=== PATIENT | male | born 1995 | race African-American/Black ===

== ENCOUNTER 2023-01-28 21:32 | Emergency (ER) | payer OTHER, SELFPAY ==
[~2023-01-28 21:32] MED LIST: Iopamidol 370 76% 100 ML VIAL ONE
[2023-01-28] MEDS ORDERED: diphenhydrAMINE 50 MG/ML VIAL ONE (21:39)
[2023-01-28] MEDS ORDERED: methylPREDNISolone Sod Succ 40 MG VIAL ONE (21:39)
[2023-01-28 21:52] LABS: PTT 25.1 sec (22.9-36.1)
[2023-01-28 21:53] LABS: Prothrombin Time 13.2 sec (12.0-14.7)
[2023-01-28 21:55] LABS: D-Dimer Test Less than 0.27 *mcg/mL (0.27-0.43)
[2023-01-28 21:59] LABS: ALT (SGPT) 47 U/L (8-55); AST (SGOT) 31 U/L (5-34); Albumin 4.6 g/dL (3.5-5.0); Alkaline Phosphatase 90 U/L (40-110); Anion Gap 21 mmol/L (10-20); BUN (Urea Nitrogen) 13 mg/dL (8.9-20.6); Calc. Creatinine Clearance 0 mL/min (70-130); Calcium 9.5 mg/dL (7.8-10.44); Carbon Dioxide 20 mmol/L (22-29); Chloride 104 mmol/L (98-107); Estimated GFR 56; Globulin 3.6 g/dL (2.4-3.5); Glucose 118 mg/dL (70-105); Potassium 3.5 mmol/L (3.5-5.1); Protein, Total 8.2 g/dL (6.0-8.3); Sodium 141 mmol/L (136-145)
[2023-01-28 22:05] LABS: Hematocrit 50.6 % (42.0-52.0); Hemoglobin 16.1 g/dL (14.0-18.0); Mean Corpuscular HGB CONC 31.7 g/dL (32.0-36.0); Mean Corpuscular Hemoglobin 31.1 pg (27.0-31.0); Mean Corpuscular Volume 97.9 fl (78.0-98.0); Platelet Count 205 10x3/uL (130-400); Red Blood Cell (RBC) Count 5.17 mill/uL (4.70-6.10); White Blood Cell (WBC) Count 9.3 10x3/uL (4.8-10.8)
[2023-01-28 22:06] LABS: #Basophils 0.1 thou/uL (0.0-0.2); #Eosinphils 0.4 thou/uL (0.0-0.7); #Monocytes 0.7 thou/uL (0.11-0.59); #Neutrophils 5.1 thou/uL (1.40-6.50); %Eosinophils 4.2 % (0.0-10.0); %Lymphocytes 31.9 % (21.0-51.0); %Monocytes 8.1 % (0.0-10.0); %Neutrophils 54.8 % (42.0-75.0); Manual Diff?? NO; Mean Platelet Volume 12.1 fL (7.4-10.4)
[2023-01-28] MEDS ORDERED: Lidocaine 1% (PF) 30 ML VIAL ONE (23:07)
[2023-01-28] MEDS ORDERED: Bacitracin 1 PK ONE (23:08)
== END 2023-01-29 | disposition home or self-care (01) ==
LOC: NAV ERS 21:32
DX: S21.141A Puncture wound with foreign body of right front wall of thorax without penetration into thoracic cavity, initial encounter (principal); S31.149A Puncture wound of abdominal wall with foreign body, unspecified quadrant without penetration into peritoneal cavity, initial encounter; W34.00XA Accidental discharge from unspecified firearms or gun, initial encounter; Y92.524 Gas station as the place of occurrence of the external cause
CPT/HCPCS: 10120; 36415; 71260; 74177; 80053; 85025; 85379; 85610; 85730; 96374; 96375; J1200; J2001; J2920; Q9967